=== PATIENT | female | born 1995 | race Caucasian/White ===

== ENCOUNTER 2024-05-24 11:05 | Emergency (ER) | payer MEDICAID ==
[~2024-05-24] VITALS: Ht 172.7 cm; Wt 152.9 kg
[~2024-05-24 11:05] MED LIST: ADVAIR 100/501 E1 INH; AMOXICILLIN500 MG PO; AMOXIL500 MG PO; AUGMENTIN 500500 MG PO; AUGMENTIN XR 101 TER PO; BACTRIM DS 8001 TA1 PO; BACTROBAN OINT22 GM T; CLARITIN10 MG PO; DIAL SOAP; FLUCONAZOLE PO; INTUNIV2 MG PO; INTUNIV3 MG PO; LAMISIL; LAMISIL T; LOMOTIL 0.025 M1 TAB PO; MOTRIN400 MG PO; MOTRIN800 MG PO; MULTIPLE VITAMI1 T17 PO; PRILOSEC20 MG PO; PROAIR HFA0.09 MG/AC IH; QVAR 80MCG/INH7.3 G1 IH; SUDAFED60 MG PO; VYVANSE40 MG PO; ZOFRAN4 MG PO; ZYRTEC10 MG PO; Zofran4 MG PO; [UNRECOGNIZED DRUG - OTHER]
[2024-05-24] MEDS ORDERED: SODIUM CHLORIDE 0.9% 500 ML IV ONE ×2 (11:40)
[2024-05-24 12:04] LABS: BASO % 0.3 % (0.0-1.0); EOS # 0.1 10*3/uL (0.0-0.4); EOS % 0.6 % (1.0-4.0); HEMATOCRIT 35.2 % (37.0-47.0); MEAN CELL VOLUME 84.2 fl (81.0-99.0); MEAN CORPUSCULAR HGB CONC 32.1 g/dl (33.0-37.0); MEAN PLATELET VOLUME 8.9 fl (9.6-12.3); MONO # 1.1 10*3/uL (0.1-1.0); NEUT # 12.6 10*3/uL (2.3-7.9); NEUT % 81.8 % (47.0-73.0); PLATELET COUNT AUTOMATED 368 10*3/uL (130-400); RED BLOOD COUNT 4.18 10*6/uL (4.10-5.10); RED CELL DISTRI WIDTH 14.6 % (0-14.5); WHITE BLOOD COUNT 15.4 10*3/uL (4.8-10.8)
[2024-05-24 12:26] LABS: ALKALINE PHOSPHATASE 79 U/L (46-116); CHLORIDE 105 mmol/L (98-107); LIPASE 28 U/L (12-53); POTASSIUM 3.8 mmol/L (3.4-5.1); TOTAL PROTEIN 6.4 gm/dL (6.0-8.0)
[2024-05-24 12:30] LABS: BUN < 5 mg/dl (9-23); SGPT/ALT < 7 U/L (5-49)
[2024-05-24 12:40] LABS: BILIRUBIN Negative (Negative); BLOOD Negative (Negative); CLARITY Clear (Clear); COLOR Dark Yellow (Yellow); GLUCOSE Negative (Negative); KETONE Trace (Negative); LEUKO ESTERASE Trace (Negative); NITRITE Negative (Negative); SPECIFIC GRAVITY 1.025 (1.001-1.030)
[2024-05-24 13:23] LABS: BACTERIA 3+; EPITHELIAL CELLS 16-20
[2024-05-24] MEDS ORDERED: Ceftriaxone Sodium 1 GM/10 ML SYR IV ONE (13:25)
[2024-05-24] MEDS ORDERED: CEPHALEXIN500 M1 PO (14:19)
== END 2024-05-24 14:24 | disposition home or self-care (01) ==
LOC: ED 11:05
PROVIDERS: Nurse Practitioner Family
DX: O23.42 Unspecified infection of urinary tract in pregnancy, second trimester (principal); Z20.822 Contact with and (suspected) exposure to COVID-19; O98.512 Other viral diseases complicating pregnancy, second trimester; O21.9 Vomiting of pregnancy, unspecified; J45.909 Unspecified asthma, uncomplicated; K21.9 Gastro-esophageal reflux disease without esophagitis; N39.0 Urinary tract infection, site not specified; Z3A.21 21 weeks gestation of pregnancy; F90.9 Attention-deficit hyperactivity disorder, unspecified type

== ENCOUNTER 2024-07-20 04:27 | Emergency (ER) | payer MEDICAID ==
[~2024-07-20] VITALS: Ht 172.7 cm; Wt 118.8 kg
[~2024-07-20 04:27] MED LIST changes: +CEPHALEXIN500 M1 PO
[2024-07-20] MEDS ORDERED: Ondansetron Hydrochloride 4 MG TAB SL ONE (04:40)
== END 2024-07-20 07:05 | disposition home or self-care (01) ==
LOC: ED 04:27
DX: O98.513 Other viral diseases complicating pregnancy, third trimester (principal); O21.9 Vomiting of pregnancy, unspecified; Z20.822 Contact with and (suspected) exposure to COVID-19; B34.9 Viral infection, unspecified; J45.909 Unspecified asthma, uncomplicated; K21.9 Gastro-esophageal reflux disease without esophagitis; F90.9 Attention-deficit hyperactivity disorder, unspecified type; Z3A.29 29 weeks gestation of pregnancy

== ENCOUNTER 2024-08-29 08:22 | Emergency (ER) | payer OTHER ==
[~2024-08-29] VITALS: Ht 172.7 cm; Wt 156.9 kg
[2024-08-29] MEDS ORDERED: PRENATAL 19 TA1 EAC2 PO (08:45)
[2024-08-29] MEDS ORDERED: Amoxicillin/Clavulanate Pota 875 MG TAB PO ONE (08:50)
[2024-08-29] MEDS ORDERED: AMOX-CLAV 875-1 EACH PO (08:54)
== END 2024-08-29 09:00 | disposition home or self-care (01) ==
LOC: ED 08:22
DX: O9A.213 Injury, poisoning and certain other consequences of external causes complicating pregnancy, third trimester (principal); S61.452A Open bite of left hand, initial encounter; Z3A.35 35 weeks gestation of pregnancy; W55.01XA Bitten by cat, initial encounter; Y93.89 Activity, other specified; Y92.89 Other specified places as the place of occurrence of the external cause; Y99.8 Other external cause status